=== PATIENT | female | born 1985 | race Caucasian/White ===

== ENCOUNTER 2023-09-01 14:39 | Outpatient (CLI) | payer OTHER | END 2023-09-01 14:40 | disposition home or self-care (01) | LOC: BICRAD 14:39 | PROVIDERS: ATTEND Internal Medicine Rheumatology | DX: M05.69 Rheumatoid arthritis of multiple sites with involvement of other organs and systems (principal) | CPT/HCPCS: 73565; 87624; 88175 ==